=== PATIENT | male | born 1995 | race Caucasian/White ===

== ENCOUNTER 2020-01-02 07:11 | Emergency (ER) | payer SELFPAY ==
[2020-01-02 07:30] VITALS: BP 116/85; PULSE 73; RESP 12; O2SAT 99; BMI 27.3
--- NOTE | 2020-01-02 07:39 | ED_ITS ---
HPI - Nausea/Vomiting/Diarrhea General Chief complaint: Nausea/Vomiting/Diarrhea Stated complaint: abd pain vomiting Time Seen by Provider: 01/02/20 07:37 Source: patient Mode of arrival: ambulatory Limitations: no limitations History of Present Illness HPI Narrative: hx of epigastric pain and vomiting - burning pain MD elicited complaint: nausea, vomiting and abdominal pain Pertinent past history: cyclical vomiting Onset (ago): day(s) (2) Description of vomiting: food contents Associated nausea: Yes Associated abdominal pain: Yes Location of pain: epigastric Severity: moderate Exacerbating factors: none Relieving factors: none Related Data Previous Rx's Medication Instructions Recorded famotidine [Pepcid] 20 mg PO BEDTIME #14 tab 01/02/20 ondansetron 4 mg PO Q8H PRN #20 tab 01/02/20 Allergies Allergy/AdvReac Type Severity Reaction Status Date / Time No Known Allergies Allergy Unverified 12/18/19 16:29 Review of Systems Review of Systems: Constitutional : No Weight loss, No Fever, No Chills ENT/Mouth : No sore throat, No Rhinorrhea Eyes: No Swelling, No Redness Cardiovascular : No Chest Pain, No SOB, NoEdema Respiratory : No Cough, No Sputum, No Wheezing Gastrointestinal : Positive Nausea, Positive Vomiting, no Diarrhea, positive abdominal Pain, No Hematochezia, No Melena Genitourinary : No Dysuria, No Urinary Frequency, No Hematuria, No Urgency Musculoskeletal : No joint pain, No Myalgias, No Joint Swelling Skin : No Skin Lesions, No rash Neuro : No Weakness, No Numbness, No Dizziness, No Headache Psych : No Anxiety/Panic, No Depression Heme/Lymph: No Bruising, No Lymphadenopathy Endocrine : No Polyuria, No Polydipsia All other systems reviewed and are negative. Gastrointestinal: Gastrointestinal: Reports nausea PMFSH Past Medical History Medical History (Updated 01/02/20 @ 08:06 by Jake Barr) Cyclical vomiting No known health problems No known health problems Social History Social History (Updated 01/02/20 @ 07:52 by Kasey Plascencia DO) Alcohol intake: current Alcohol intake frequency: a few times a month Smoking Status: Current every day smoker Smoked in Last 30 Days: Yes Use of substances other than those prescribed or required for medical reasons: Yes Substance Use Type: Marijuana Substance Use Frequency: Daily Any prior treatment program specific to substance use: No Advance Directives: No Advance Directives Information Provided: Yes Physical Exam Vital Signs and I&O and Narrative: Vital Signs and I&O: Vital Signs Pulse 73 01/02/20 07:30 Resp 12 01/02/20 07:30 BP 116/85 01/02/20 07:30 Pulse Ox 99 01/02/20 07:30 Intake & Output 01/01/20 01/02/20 01/02/20 18:59 06:59 18:59 Intake Total 466.2 / 466.2 Balance 466.2 / 466.2 Weight 81.647 kg Intake: Intake, IV Amoun t 466.2 / 466.2 0.9 % Sodium C hloride 1,000 ml 466.2 / 466.2 @ 999 mls/hr I VCONT .Q1H1M AARON Rx#:[id number] Body Mass Index 27.3 Appearance: Alert. Oriented X3. No acute distress. Eyes: Pupils equal, round and reactive to light. ENT: Pharynx normal. Neck: Normal inspection. Neck supple. CVS: Normal heart rate and rhythm. Pulses normal. Respiratory: No respiratory distress. Breath sounds normal. Abdomen: Soft and mild epigastric ttp, no RUQ pain Skin: Skin warm and dry. Normal skin color. Normal skin turgor. Extremities: No lower extremity edema. No lower extremity edema. Neuro: Oriented X 3. No motor deficit. No sensory deficit. 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, will need labs, hydrate, once improved will DC home on pepcid / zofran, told expectant course of 4 weeks abstinence Lab Data Result diagrams: 01/02/20 07:49 01/02/20 07:49 Labs: Lab Results 01/02/20 01/02/20 01/02/20 Range/Units 07:49 07:49 07:49 WBC 15.9 H (4.8-10.8) X10*3/uL RBC 5.68 (4.60-5.80) X10*6/uL Hgb 16.4 (14.0-18.0) g/dl Hct 47.5 (42-52) % MCV 83.6 (80-98) fL MCH 28.9 (27.0-33.0) pg MCHC 34.5 (31.0-36.0) g/dl RDW 12.2 (11.0-16.0) % Plt Count 296 (160-400) X10*3/uL MPV 9.7 (9.4-12.4) fL Immature Gran % (Auto) 0.3 (0.0-0.4) % Neut % (Auto) 85.2 H (45-73) % Lymph % (Auto) 9.3 L (20-40) % [place] % (Auto) 4.7 (2-11) % Eos % (Auto) 0.1 (0-4) % Baso % (Auto) 0.4 (0-2) % Neut # (Auto) 13.5 H (2.0-8.3) X10*3/uL Lymph # (Auto) 1.5 (1.2-4.9) X10*3/uL [place] # (Auto) 0.7 (0.1-1.2) X10*3/uL Eos # (Auto) 0.0 (0.0-0.4) X10*3/uL Baso # (Auto) 0.1 (0.0-0.2) X10*3/uL Abs Immat Gran (auto) 0.05 H (0.00-0.03) X10*3/uL Absolute Nucleated RBC 0.000 (0.0-0.012) X10*3/uL Nucleated RBC % (auto) 0.0 (0.0-0.2) /100WBC Hold Blue Top SEE NOTE Sodium 141 (135-145) mmol/L Potassium 3.7 (3.3-5.1) mmol/l Chloride 107 (96-108) mmol/L Carbon Dioxide 24 (22-29) mmol/L Anion Gap 14 (12-20) BUN 20 H (9-16) mg/dL Creatinine 1.08 (0.5-1.4) mg/dL Estim Creat Clear Calc 102.0 Estimated GFR > 60 Random Glucose 102 (60-115) mg/dL Calcium 9.9 (8.4-10.2) mg/dL Magnesium 2.0 (1.6-2.6) mg/dL Total Bilirubin 1.1 H (0.0-1.0) mg/dL Direct Bilirubin 0.4 (0.0-0.5) mg/dL AST 17 (5-37) U/L ALT 21 (0-40) U/L Alkaline Phosphatase 125 H (39-117) U/L Total Protein 7.1 (6.5-8.0) g/dL Albumin 4.7 (3.5-5.0) g/dL Discharge Plan Discharge Clinical Impression: Cyclical vomiting syndrome Patient Disposition: Home, Self-Care Instructions: Acute Nausea and Vomiting (ED) Additional Instructions: you have to abstain for 4 weeks for complete resolution, you can use capsacin ointment on your stomach as well to help with pain Prescriptions: New ondansetron 4 mg tablet,disintegrating 4 mg PO Q8H PRN (Reason: nausea and vomiting) Qty: 20 RF: 2 famotidine [Pepcid] 20 mg tablet 20 mg PO BEDTIME Qty: 14 RF: 0 Stand Alone Forms: Work/School Release
[2020-01-02] MEDS: Metoclopramide HCl 10 MG/2 ML VIAL IVPUSH ×2 (07:55→07:56)
[2020-01-02] MEDS: 0.9 % Sodium Chloride 1,000 ML 999 ML IVCONT (07:56)
[2020-01-02] MEDS: Famotidine/PF 20 MG/2 ML VIAL IVPUSH (07:56)
[2020-01-02 07:59] LABS: MANUAL DIFF FLAG NO
[2020-01-02 08:06] LABS: Basophils Absolute Auto 0.1 X10*3/uL (0.0-0.2); Basophils Percent Auto 0.4 % (0-2); Eosinophils Percent Auto 0.1 % (0-4); Hematocrit 47.5 % (42-52); Hemoglobin 16.4 g/dl (14.0-18.0); Imm Gran Abs Auto 0.05 X10*3/uL (0.00-0.03); Imm Gran Pct Auto 0.3 % (0.0-0.4); Lymphocytes Absolute Auto 1.5 X10*3/uL (1.2-4.9); Lymphocytes Percent Auto 9.3 % (20-40); Mean Corpuscular HGB Conc 34.5 g/dl (31.0-36.0); Mean Corpuscular Hemoglobin 28.9 pg (27.0-33.0); Mean Corpuscular Volume 83.6 fL (80-98); Mean Platelet Volume 9.7 fL (9.4-12.4); Monocytes Absolute Auto 0.7 X10*3/uL (0.1-1.2); Monocytes Percent Auto 4.7 % (2-11); Neutrophils Absolute Auto 13.5 X10*3/uL (2.0-8.3); Neutrophils Percent Auto 85.2 % (45-73); Platelet Count 296 X10*3/uL (160-400); Red Blood Count 5.68 X10*6/uL (4.60-5.80); Red Cell Distribution Width 12.2 % (11.0-16.0); White Blood Count 15.9 X10*3/uL (4.8-10.8)
[2020-01-02 08:42] LABS: Alanine Aminotransferase 21 U/L (0-40); Albumin Level 4.7 g/dL (3.5-5.0); Alkaline Phosphatase 125 U/L (39-117); Anion Gap 14 (12-20); Aspartate Amino Transferase 17 U/L (5-37); Bilirubin Direct 0.4 mg/dL (0.0-0.5); Bilirubin Total 1.1 mg/dL (0.0-1.0); Blood Urea Nitrogen 20 mg/dL (9-16); Calcium 9.9 mg/dL (8.4-10.2); Carbon Dioxide 24 mmol/L (22-29); Chloride 107 mmol/L (96-108); Estimated Glomerular Filt Rate > 60; Glucose Random 102 mg/dL (60-115); Potassium 3.7 mmol/l (3.3-5.1); Sodium 141 mmol/L (135-145); Total Protein 7.1 g/dL (6.5-8.0)
[2020-01-02 09:05] LABS: Lipase 30 U/L (8-78)
[2020-01-02 09:25] VITALS: BP 140/76; PULSE 61; RESP 16; TEMP 36.8; O2SAT 99
== END 2020-01-02 09:28 | disposition home or self-care (01) ==
PROVIDERS: Emergency Provider Emergency Medicine
DX: R11.15 Cyclical vomiting syndrome unrelated to migraine (principal); R10.9 Unspecified abdominal pain; F12.90 Cannabis use, unspecified, uncomplicated; F17.200 Nicotine dependence, unspecified, uncomplicated; Z71.6 Tobacco abuse counseling
CPT/HCPCS: 36415; 80048; 80076; 83690; 83735; 85025; 96361; 96374; 96375; 99284; 99285; J1200; J2765